=== PATIENT | female | born 1960 | race Caucasian/White ===

== ENCOUNTER 2017-02-15 20:51 | Emergency (ER) | payer MEDICAID, OTHER ==
[2017-02-15] MEDS ORDERED: IPRATROPIUM/ALBUTEROL 3 ML DEYVIAL ONE (20:57)
[2017-02-15] MEDS ORDERED: IPRATROPIUM/ALBUTEROL 3 ML DEYVIAL IH ONE (21:04)
[2017-02-15 21:26] VITALS: TEMP 97.9
--- NOTE | 2017-02-15 21:28 | EDPHY ---
H & P Stated Complaint: COPD flare up, cough and wheezing and SOB HPI/ROS: CHIEF COMPLAINT: Sinus symptoms; needs inhaler prescription HISTORY OF PRESENT ILLNESS: The patient is a 56 y/o female, with a history of COPD, complaining of sinus symptoms for the last several months and chronic wheezing. She describes postnasal drip and intermittent sinus headaches with a chronic cough. No chest pain, fever, abdominal pain, vomiting, diarrhea, dysuria. [facility] prescribed albuterol, Advair, and a nasal spray for her symptoms. She said she had a chest x-ray 3 weeks ago as well. She reports she's run out of her inhalers and needs a new prescription. She is a heavy smoker and reports smoking over 1 pack per day. REVIEW OF SYSTEMS: A ten point review of systems was performed and is negative with the exception of the items mentioned in the HPI. - Personal History Current Tetanus/Diphtheria Vaccine: Unsure Current Tetanus Diphtheria and Acellular Pertussis (TDAP): Unsure - Medical/Surgical History PMH: COPD Hx Asthma: No Hx Chronic Respiratory Disease: Yes Hx Diabetes: No Hx Cardiac Disease: Yes Hx Renal Disease: No Hx Cirrhosis: No Hx Alcoholism: No Hx HIV/AIDS: No Hx Splenectomy or Spleen Trauma: No Other PMH: HTN, bipolar, COPD, GERD - Social History Smoking Status: Current every day smoker Additional Social History: Arrived from [place] 8 months ago. . PCP is Andrew Gutierrez. - Physical Exam Exam: General Appearance: Alert. Vital signs reviewed. blood pressure 153/102, room air pulse ox 85% initially, RR 24. Eyes: Pupils equal and round, no conjunctival injection, no discharge. Anicteric. ENT, Mouth: Mucous membranes are moist, no oropharyngeal erythema or edema. No drainage noted in pharynx. Neck: No lymphadenopathy, supple. Trachea midline. Respiratory: Lungs with distant breath sounds. Cardiovascular: Regular rate and rhythm; no murmur, rub, or gallop. Gastrointestinal: Abdomen is soft and nontender, no masses or organomegaly, bowel sounds normal. Skin: Warm and dry, no rashes on exposed skin, normal color. Mejias. Back: Nontender to palpation over the thoracolumbar spine. No CVAT. Extremities: No lower extremity edema, no calf tenderness or swelling. Neurological: Alert and oriented. Moving all four extremities easily and equally. Psychiatric: Slightly agitated affect. Constitutional: Initial Vital Signs Temperature (C) 36.6 C 02/15/17 21:05 Heart Rate 83 02/15/17 21:05 Respiratory Rate 24 H 02/15/17 21:05 Blood Pressure 153/102 H 02/15/17 21:05 O2 Sat (%) 85 L 02/15/17 21:05 O2 Delivery Mode Room Air O2 (L/minute) 1 Allergies/Adverse Reactions: Penicillins Allergy (Verified 02/15/17 21:00) Home Medications: Medication Instructions Recorded Depakote 02/15/17 INVEGA 02/15/17 Lisinopril 02/15/17 Proair Hfa 02/15/17 Zantac 02/15/17 Medical Decision Making ED Course/Re-evaluation: Duo neb administered. Breath sounds are now clear but distant. She declined chest x-ray and prednisone. Albuterol nebulizer administered. She has been hypertensive in ED and is advised to have this followed up on by her PCP. Pulse ox 90% RA. 2209: Reassessed patient. She states she is feeling much better after nebulizer treatment. Her lung sounds are tight, but clear. She would like to go home. She refuses further ED treatment. She is not interested in smoking cessation. I've recommended follow up with her PCP for continued symptoms on Saturday. Return precautions given. Differential Diagnosis: I considered a ddx that includes but is not limited to asthma/COPD exacerbation , bronchitis, pneumonia. - Data Points Medications Given: Discontinued Medications Albuterol (Proventil Neb) 3 ml IH EDNOW ONE Stop: 02/15/17 21:50 Last Admin: 02/15/17 22:04 Dose: 3 ml Albuterol Sulfate (Proventil Inh Prepack) 1 mdi TAKEHOME EDNOW ONE Stop: 02/15/17 23:01 Last Admin: 02/15/17 23:00 Dose: 1 mdi Albuterol/Ipratropium (Duoneb) 3 ml IH EDNOW ONE Stop: 02/15/17 21:05 Last Admin: 02/15/17 21:11 Dose: 3 ml Departure - Departure Disposition: Home, Routine, Self-Care Clinical Impression: Wheezing Condition: Good Instructions: Albuterol (By mouth), Wheezing (ED) Additional Instructions: 1. Use inhaler as prescribed for wheezing and cough. 2. Decrease tobacco use. 3. Follow up with your primary care provider for unimproved symptoms over the next 3-4 days. 4. Return to the ED for worsening of condition. Referrals: ANDREW GUTIERREZ [Other] - As per Instructions Report Scribed for: Barbara Villa Report Scribed by: Kalli Velasquez Date of Report: 02/15/17 Time of Report: 21:47 Physician Review and Approval Statement: 02/15/17 21:28 Portions of this note were transcribed by the medical technician assistant. I, Dr. Barbara Villa, personally performed the history, physical exam, and medical decision- making; and confirmed the accuracy of the information in the transcribed note.
[2017-02-15] MEDS ORDERED: ALBUTEROL 3 ML DEYVIAL IH ONE (21:49)
[2017-02-15] MEDS ORDERED: ALBUTEROL 3 ML DEYVIAL ONE (21:50)
[2017-02-15] MEDS ORDERED: ALBUTEROL INH PREPACK MDI TAKEHOME ONE ×2 (22:06→23:00)
[2017-02-15 22:50] VITALS: BP 154/101; PULSE 77; RESP 18; O2SAT 90
== END 2017-02-15 23:07 | disposition home or self-care (01) ==
DX: R06.2 Wheezing (principal); I10 Essential (primary) hypertension; J44.9 Chronic obstructive pulmonary disease, unspecified; F17.200 Nicotine dependence, unspecified, uncomplicated